=== PATIENT | male | born 1970 | race Caucasian/White ===

== ENCOUNTER 2016-06-07 17:52 | Observation (INO) ==
[2016-06-07] MEDS ORDERED: 0.9 % Sodium Chloride 1,000 ML IVC ONE ×2 (18:04→20:44)
[2016-06-07] MEDS ORDERED: Ondansetron 4 MG/2 ML VIAL IVP ONE (18:13)
[2016-06-07] MEDS ORDERED: Ipratropium/Albuterol Neb 3 ML IH ONE (18:13)
--- NOTE | 2016-06-07 18:17 | Emergency Department Note ---
Disposition Clinical Impression: Orthostatic hypotension Disposition: Admitted As Inpatient Condition: Good Referrals: Sandra Yen MD [Primary Care Provider] - Forms: Work/School Release, ED Satisfaction Letter Time of Disposition: 22:48 (lucrecia obsv) Syncope HPI - General Chief Complaint: ED General Medical Stated Complaint: vomiting, body aches, ear pain, headache Time Seen by Provider: 06/07/16 18:03 Source: patient, family Mode of arrival: ambulatory Limitations: no limitations Nursing Notes Reviewed: Yes Vital Signs Reviewed: Yes - History of Present Illness HPI Narrative: 46 year old with nausea and vomiting for 5 days syncope tuesday sent from primary doctor "orthostatic" headache, cough, congestion, chills, shaking dizzy with sitting up not intake fluids since tuesday diabetes, diet controlled no urine symptoms quit smoking years ago wheezing and sob cough, non productive denies chest pain Pt Subjective Complaint: loss of consciousness Onset (ago): day(s) Duration: second(s) Prodromal Symptoms: lightheaded, shortness of breath, nausea/vomiting Witnessed: yes - by bystander Context: getting out of bed - Related Data Home Medications Medication Instructions Recorded Confirmed Lisinopril [Zestril] 10 mg PO 06/07/16 Ropinirole [Requip] 1 mg PO 06/07/16 Tamsulosin [Flomax] 0.4 mg PO DAILY 06/07/16 06/07/16 Allergies Allergy/AdvReac Type Severity Reaction Status Date / Time atorvastatin AdvReac Chest Pain Verified 06/07/16 17:54 All systems ED: reviewed and negative except as stated. Constitutional: Reports: chills, weakness, weight change Cardiovascular: Reports: syncope Respiratory: Reports: cough Gastrointestinal: Reports: nausea, vomiting Genitourinary: Reports: as per HPI. Denies: urgency, dysuria Musculoskeletal: Reports: as per HPI Integumentary: Reports: as per HPI Neurological: Reports: as per HPI, weakness Psychiatric: Reports: as per HPI Endocrine: Reports: as per HPI Past Medical History - Past Medical History Attestation: Yes The following information was validated with the patient. Source: patient, old records reviewed Medical history: Reports: diabetes, hypertension, kidney stones, thyroid disease , other Psychiatric history: Reports: no psych history - Social History Smoking Status: Former smoker Smokeless Tobacco Status: No Alcohol use: Reports: recent Drug use: Reports: none Physical Exam - General Limitations: no limitations General appearance: alert, in no apparent distress - Eye Eye exam: Present: normal appearance, PERRL, EOMI - ENT ENT exam: normal exam - Neck Neck exam: Present: normal inspection, full ROM - Chest Chest inspection: Present: normal inspection - Respiratory Respiratory exam: Present: wheezes, prolonged expiratory phase - Cardiovascular Cardiovascular exam: Present: regular rate, normal rhythm - Abdominal Exam Abdominal exam: Present: soft, Non-Tender - Extremities Exam Extremities exam: Present: normal inspection, full ROM. Absent: tenderness, pedal edema - Neurological Exam Neurological exam: Present: alert, oriented X3 - Psychiatric Psychiatric exam: Present: depressed - Skin Skin exam: Present: warm, dry Course Course Narrative: patient seen and examined iv fluids - Reevaluation(s) Reevaluation #1: After additional liter of fluid the patient still orthostatic hypotensive with blood pressure of 80/50 systolic only comes up slightly 115/80 diastolic and upright position but his heart rate jumps significantly with the changes so as result will watch thru the night Vital Signs Temperature 100.3 F H 06/07/16 17:58 Pulse Rate 89 06/07/16 17:58 Respiratory Rate 18 06/07/16 17:58 Blood Pressure 116/87 06/07/16 17:58 O2 Sat by Pulse Oximetry 99 06/07/16 17:58 Temperature 100.3 F H 06/07/16 18:04 Pulse Rate 77 06/07/16 20:39 Respiratory Rate 18 06/07/16 18:36 Blood Pressure 98/67 06/07/16 20:39 O2 Sat by Pulse Oximetry 99 06/07/16 18:36 Oxygen Delivery Oxygen Delivery Room Air Syncope - Differential Diagnosis Likely: syncope due to orthostatic hypotension, vasovagal syncope, complete atrioventricular block, intracerebral hemorrhage, pulmonary embolism, dehydration/metabolic disorder, trauma secondary to event - Lab Data Result diagrams: 06/07/16 18:16 06/07/16 18:16 Lab Results 06/07/16 06/07/16 06/07/16 Range/Units 18:16 18:16 18:16 WBC 2.3 L (4.3-11.1) K/mcL RBC 4.59 (4.19-5.50) M/mcL Hgb 15.5 (12.9-16.9) g/dL Hct 44.4 (37.5-50.1) % MCV 96.7 (83.0-100.0) fL MCH 33.8 H (28.0-33.3) pg MCHC 34.9 (31.6-35.5) g/dL RDW 11.9 (11.5-14.5) % Plt Count 96 L (140-400) K/mcL MPV 9.7 (9.4-12.4) fL Immature Gran % 0.4 (0-4) % Seg Neutrophils % 53.1 % Lymphocytes % 34.2 % Monocytes % 11.5 % Eosinophils % 0.4 % Basophils % 0.4 % Neutrophils # 1.2 L (1.6-8.9) K/mcL Lymphocytes # 0.8 (0.6-4.6) K/mcL Monocytes # 0.3 (0.0-1.3) K/mcL Eosinophils # 0.0 (0.0-0.6) K/mcL Basophils # 0.0 (0.0-0.2) K/mcL Platelet Estimate Slight Decrease L (Normal) D-Dimer 1666 H (0-500) ng/mLFEU VBG Lactic Acid (0.5-2.2) mmol/L Sodium 135 L (136-145) mEq/L Potassium 4.0 (3.5-4.5) mEq/L Chloride 96 L (98-109) mEq/L Carbon Dioxide 26 (19-29) mEq/L BUN 13 (8-26) mg/dL Creatinine 1.21 (0.72-1.25) mg/dL Est GFR ( Amer) > 60 (> 60) Est GFR (Non-Af Amer) > 60 (> 60) BUN/Creatinine Ratio 11 (6-26) Glucose 93 (70-99) mg/dL Calculated Osmolality 280 (280-300) Calcium 8.8 (8.6-10.8) mg/dL Total Bilirubin 0.5 (0.2-1.2) mg/dL AST 21 (5-34) Units/L ALT 16 (0-55) Units/L Alkaline Phosphatase 64 (38-126) Units/L Troponin I (0-0.03) ng/mL Serum Total Protein 6.8 (6.0-8.3) g/dL Albumin 3.8 (3.5-5.0) g/dL Globulin 3.0 (2.4-3.5) g/dL Albumin/Globulin Ratio 1.3 (1.1-2.2) Urine Color (Yellow) Urine Clarity (Clear) Urine pH (5.0-8.0) pH Units Ur Specific Radiant (1.010-1.025) Urine Protein (Neg-Trace) mg/dL Urine Glucose (UA) (Normal) mg/dL Urine Ketones (Negative) mg/dL Urine Blood (Negative) Urine Nitrite (Negative) Urine Bilirubin (Negative) Urine Urobilinogen (Normal) mg/dL Ur Leukocyte Esterase (Negative) Ur Culture Indicated? (NO) 06/07/16 06/07/16 06/07/16 Range/Units 18:16 18:16 22:00 WBC (4.3-11.1) K/mcL RBC (4.19-5.50) M/mcL Hgb (12.9-16.9) g/dL Hct (37.5-50.1) % MCV (83.0-100.0) fL MCH (28.0-33.3) pg MCHC (31.6-35.5) g/dL RDW (11.5-14.5) % Plt Count (140-400) K/mcL MPV (9.4-12.4) fL Immature Gran % (0-4) % Seg Neutrophils % % Lymphocytes % % Monocytes % % Eosinophils % % Basophils % % Neutrophils # (1.6-8.9) K/mcL Lymphocytes # (0.6-4.6) K/mcL Monocytes # (0.0-1.3) K/mcL Eosinophils # (0.0-0.6) K/mcL Basophils # (0.0-0.2) K/mcL Platelet Estimate (Normal) D-Dimer (0-500) ng/mLFEU VBG Lactic Acid 0.9 (0.5-2.2) mmol/L Sodium (136-145) mEq/L Potassium (3.5-4.5) mEq/L Chloride (98-109) mEq/L Carbon Dioxide (19-29) mEq/L BUN (8-26) mg/dL Creatinine (0.72-1.25) mg/dL Est GFR ( Amer) (> 60) Est GFR (Non-Af Amer) (> 60) BUN/Creatinine Ratio (6-26) Glucose (70-99) mg/dL Calculated Osmolality (280-300) Calcium (8.6-10.8) mg/dL Total Bilirubin (0.2-1.2) mg/dL AST (5-34) Units/L ALT (0-55) Units/L Alkaline Phosphatase (38-126) Units/L Troponin I 0.02 (0-0.03) ng/mL Serum Total Protein (6.0-8.3) g/dL Albumin (3.5-5.0) g/dL Globulin (2.4-3.5) g/dL Albumin/Globulin Ratio (1.1-2.2) Urine Color Yellow (Yellow) Urine Clarity Clear (Clear) Urine pH 5.0 (5.0-8.0) pH Units Ur Specific Radiant <= 1.005 L (1.010-1.025) Urine Protein Negative (Neg-Trace) mg/dL Urine Glucose (UA) Normal (Normal) mg/dL Urine Ketones 40 H (Negative) mg/dL Urine Blood Negative (Negative) Urine Nitrite Negative (Negative) Urine Bilirubin Negative (Negative) Urine Urobilinogen Normal (Normal) mg/dL Ur Leukocyte Esterase Negative (Negative) Ur Culture Indicated? NO (NO)
[2016-06-07 18:30] LABS: Basophils % 0.4 %; Eosinophils % 0.4 %; Hematocrit 44.4 % (37.5-50.1); Hemoglobin 15.5 g/dL (12.9-16.9); Immature Granulocytes % 0.4 % (0-4); Lymphocytes # 0.8 K/mcL (0.6-4.6); Lymphocytes % 34.2 %; Mean Corpuscular HGB Conc 34.9 g/dL (31.6-35.5); Mean Corpuscular Hemoglobin 33.8 pg (28.0-33.3); Mean Corpuscular Volume 96.7 fL (83.0-100.0); Mean Platelet Volume 9.7 fL (9.4-12.4); Monocytes # 0.3 K/mcL (0.0-1.3); Monocytes % 11.5 %; Neutrophils # 1.2 K/mcL (1.6-8.9); Red Blood Count 4.59 M/mcL (4.19-5.50); Red Cell Distribution Width 11.9 % (11.5-14.5); Segmented Neutrophils % 53.1 %
[2016-06-07 18:32] LABS: Platelet Count 96 K/mcL (140-400)
[2016-06-07 18:42] LABS: Alanine Aminotransferase 16 Units/L (0-55); Albumin 3.8 g/dL (3.5-5.0); Albumin/Globulin Ratio 1.3 (1.1-2.2); Alkaline Phosphatase 64 Units/L (38-126); Aspartate Amino Transferase 21 Units/L (5-34); BUN/Creatinine Ratio 11 (6-26); Bilirubin,Total 0.5 mg/dL (0.2-1.2); Blood Urea Nitrogen 13 mg/dL (8-26); Calcium 8.8 mg/dL (8.6-10.8); Carbon Dioxide 26 mEq/L (19-29); Chloride 96 mEq/L (98-109); Glucose 93 mg/dL (70-99); Osmolality,Calculated 280 (280-300); Sodium 135 mEq/L (136-145); Total Protein 6.8 g/dL (6.0-8.3); eGFR For African Americans > 60 (> 60); eGFR For Non-African Americans > 60 (> 60)
[2016-06-07 18:56] LABS: Platelet Estimate Slight Decrease (Normal)
[2016-06-07 22:03] LABS: Bilirubin,Urine Negative (Negative); Blood,Urine Negative (Negative); Clarity,Urine Clear (Clear); Color,Urine Yellow (Yellow); Glucose,Urine (UA) Normal (Normal); Ketones,Urine 40 mg/dL (Negative); Leukocyte Esterase,Urine Negative (Negative); Nitrite,Urine Negative (Negative); Protein,Urine Negative (Neg-Trace); Specific Gravity,Urine <= 1.005 (1.010-1.025); Urobilinogen,Urine Normal (Normal)
[2016-06-07] MEDS ORDERED: Naloxone 0.4 MG/ML INJ IVP PRN (23:48)
[2016-06-08] MEDS ORDERED: Acetaminophen 325 MG TABLET PO PRN (00:25)
[2016-06-08] MEDS: 0.9 % Sodium Chloride 1,000 ML IVC SCH ×2 (00:43→07:26)
[2016-06-08 06:57] LABS: Hematocrit 41.7 % (37.5-50.1); Hemoglobin 14.2 g/dL (12.9-16.9); Lymphocytes # 0.6 K/mcL (0.6-4.6); Lymphocytes % 47.3 %; Mean Corpuscular HGB Conc 34.1 g/dL (31.6-35.5); Mean Corpuscular Hemoglobin 33.9 pg (28.0-33.3); Mean Corpuscular Volume 99.5 fL (83.0-100.0); Mean Platelet Volume 10.1 fL (9.4-12.4); Monocytes # 0.1 K/mcL (0.0-1.3); Monocytes % 6.1 %; Neutrophils # 0.6 K/mcL (1.6-8.9); Red Blood Count 4.19 M/mcL (4.19-5.50); Red Cell Distribution Width 12.1 % (11.5-14.5); Segmented Neutrophils % 46.6 %
[2016-06-08 07:03] LABS: INR 1.1
[2016-06-08 07:06] LABS: Activated Partial Thrombo Time 35.1 Seconds (26.0-36.0)
[2016-06-08 07:25] LABS: Platelet Count 86 K/mcL (140-400)
[2016-06-08 07:42] LABS: BUN/Creatinine Ratio 14 (6-26); Blood Urea Nitrogen 13 mg/dL (8-26); Calcium 8.3 mg/dL (8.6-10.8); Carbon Dioxide 23 mEq/L (19-29); Chloride 106 mEq/L (98-109); Glucose 141 mg/dL (70-99); Magnesium 2.2 mg/dL (1.6-2.6); Osmolality,Calculated 294 (280-300); Phosphorous 4.4 mg/dL (2.3-4.7); Potassium 5.1 mEq/L (3.5-4.5); Sodium 141 mEq/L (136-145); eGFR For African Americans > 60 (> 60); eGFR For Non-African Americans > 60 (> 60)
[2016-06-08 08:54] LABS: Platelet Estimate Decreased (Normal)
--- NOTE | 2016-06-08 11:02 | Internal Med History&Physical ---
Date of Encounter: 06/08/16 Time of Encounter: 10:25 Assessment and Plan (1) Vomiting Current visit: Yes Status: Acute Suspect due to viral gastroenteritis. He states symptoms have improved and he has had no vomiting for approximately 24 hours now. Qualifiers: Vomiting type: unspecified Vomiting Intractability: non-intractable Nausea presence: with nausea Qualified Code(s): R11.2 - Nausea with vomiting, unspecified (2) Leukopenia Current visit: Yes Status: Acute New since August 2015 labs. Suspect secondary to viral infection.. Qualifiers: Leukopenia type: unspecified Qualified Code(s): D72.819 - Decreased white blood cell count, unspecified (3) Thrombocytopenia Current visit: Yes Status: Acute New since August 2015 labs. Suspect secondary to viral infection. Internal Medicine - H&P: HPI Chief complaint: Vomiting and weakness Admitted From: Home Plans for Post Hospital Care: Home History of present illness: Mr. Blanc is a 46 year old male who was sent to the emergency room from Dr. Yen's office after he presented with 3 day history of vomiting and weakness. He reports having chills and a headache onset June 04. He had a syncopal episode with vomiting at a friend's house the following day. He reports his syncope occurred while he was sitting and he states he had a sudden feeling of warmth and nausea and lost consciousness for approximately 10 seconds. He did not fall out of the chair because friends caught him. His symptoms did not improve over the next 48 hours so went to see his PCP Dr. Yen. He was directed to emergency room. Evaluation in emergency room showed leukopenia and thrombocytopenia. He was admitted to [facility] floor for ongoing care needs. He states he feels improved at the present time and back to his baseline and wishes to be discharged home. He denies significant diarrhea. He denies pain dyspnea or cough. States he has tolerated his breakfast today without difficulty. He denies similar symptoms in his family or friends. Past Med Surg Social Fam HX - Past Medical History Medical history: diabetes, hypertension, kidney stones, thyroid disease, other Psychiatric history: no psych history - Social History Smoking Status: Former smoker Smokeless Tobacco Status: No Alcohol use: recent Drug use: none - Family History Mother Living Status: Still Living Hx Family Cancer: Yes Father Living Status: Age at : 53 Cause of : Bone cancer Hx Family Cancer: Yes Internal Medicine - H&P: Meds Lisinopril [Zestril] 2.5 mg PO DAILY 06/07/16 [History] Ropinirole [Requip] 5 mg PO DAILY 06/07/16 [History] Tamsulosin [Flomax] 0.4 mg PO DAILY 06/07/16 [History] Allergies atorvastatin Adverse Reaction (Verified 06/07/16 17:54) Chest Pain All Systems PM: A 10-system review of systems was performed and is negative for pertinent findings except as documented above in the HPI. Review of systems: Gen.: He states his weight has decreased approximately 10 pounds the past few days because of poor intake Cardiovascular: He has a history of hypertension but denies ME heart failure angina DVT or pulmonary embolus Respiratory: He smoked from age [age] a total of 20 years. He smoked up to 5 packs per day. He denies a diagnosis of COPD GI: He denies disorders of his liver gallbladder or exocrine pancreas : He reports a kidney stone passed 10-15 years ago. He has BPH and uses Flomax but denies other kidney bladder prostate disorders Neurologic: He denies large distribution strokes or seizures Endocrine: He denies thyroid disease or hyperlipidemia. He states he has diet- controlled diabetes. Hemoglobin A1c was 5.0% on 03/08/2016. Hematology/oncology: He was found to have leukopenia and thrombocytopenia on emergency room labs. He had normal values of WBC and platelet count on blood work 09/05/2015. He denies other blood disorders or internal malignancies Psychiatric: He denies anxiety depression or other mental health issues Musk skeletal: He has had multiple back surgeries with fusion. He has degenerative disc disease. He had left shoulder surgery in the past and reports having multiple bone spurs. - Constitutional Vitals: Temp Pulse Resp BP Pulse Ox 98.0 F 68 18 124/82 96 06/08/16 06:31 06/08/16 06:31 06/08/16 06:31 06/08/16 06:31 06/08/16 06:31 Exam: Gen.: He is a well-developed well-nourished male who appears in no severe distress at present time HEENT: Head is atraumatic normocephalic. Eyes: EOMI. There is no scleral icterus. Mouth: Mucosa is moist. Neck: Supple and nontender. There is no thyromegaly or adenopathy noted. Heart: Regular without murmurs gallops or ectopics. Lungs: No wheezes or crackles are heard. Abdomen: Bowel sounds are diminished. The abdomen is nontender to palpation. No masses or guarding are noted. Extremities: There is no cyanosis edema or clubbing noted. He has some petechiae on his lower legs bilaterally with abrupt termination at sock/hutson lines. He has minimal DJD changes of his hands. Neurologic: Mental status: He is talkative and a good historian. Cranial nerves : Smile is symmetric. Forehead wrinkles bilaterally. Tongue protrudes midline. EOMI. Motor: There is no pronator drift. Cerebellar: Finger to nose is intact bilaterally. Skin: Warm and dry Internal Med - H&P Results - Labs CBC & Chem 7: 06/08/16 05:20 06/08/16 06:00 Labs: Short CBC 06/08/16 Range/Units 05:20 WBC 1.3 L (4.3-11.1) K/mcL Hgb 14.2 (12.9-16.9) g/dL Hct 41.7 (37.5-50.1) % Plt Count 86 L (140-400) K/mcL Neutrophils # 0.6 L (1.6-8.9) K/mcL BMP 06/08/16 06:00 Sodium 141 Potassium 5.1 H D Chloride 106 Carbon Dioxide 23 BUN 13 Creatinine 0.94 Glucose 141 H Calcium 8.3 L
[2016-06-08 11:12] VITALS: BP 130/86
--- NOTE | 2016-06-08 11:17 | Discharge Summary ---
Date of Encounter: 06/08/16 Time of Encounter: 10:25 - Discharge Diagnosis (1) Vomiting Priority: Primary Status: Acute Qualifiers: Vomiting type: unspecified Vomiting Intractability: non-intractable Nausea presence: with nausea Qualified Code(s): R11.2 - Nausea with vomiting, unspecified (2) Leukopenia Priority: Secondary Status: Acute Qualifiers: Leukopenia type: unspecified Qualified Code(s): D72.819 - Decreased white blood cell count, unspecified (3) Thrombocytopenia Priority: Secondary Status: Acute - Discharge Medications Home Medications: Lisinopril [Zestril] 2.5 mg PO DAILY 06/07/16 [History] Ropinirole [Requip] 5 mg PO DAILY 06/07/16 [History] Tamsulosin [Flomax] 0.4 mg PO DAILY 06/07/16 [History] Allergies/Adverse Reactions: Allergies atorvastatin Adverse Reaction (Verified 06/07/16 17:54) Chest Pain Date of admission: 06/07/16 22:57 Primary care physician: Sandra Yen Consults: 06/08/16 00:58 Consult to Nutrition [CONS] Routine Comment: Consulting Provider: NUTRITION Reason for Dietary Consult: MST Score - Patient Status Disposition: Home, Self-Care Condition: Good Functional capacity at discharge: independent ambulation Overall status at discharge: patient is progressing back to baseline - Discharge Instructions Follow Up With: Sandra Yen MD [Primary Care Provider] - 1 week - Diet and Activity Activity: resume usual activities as tolerated Diet: advance to your usual diet Hospital course: Mr. Blanc is a 46 year old male who was sent to the emergency room from Dr. Yen's office after he presented with 3 day history of vomiting and weakness. He reports having chills and a headache onset June 04. He had a syncopal episode with vomiting at a friend's house the following day. He reports his syncope occurred while he was sitting and he states he had a sudden feeling of warmth and nausea and lost consciousness for approximately 10 seconds. He did not fall out of the chair because friends caught him. His symptoms did not improve over the next 48 hours so went to see his PCP Dr. Yen. He was directed to emergency room. Evaluation in emergency room showed leukopenia and thrombocytopenia. He was admitted to [facility] for ongoing care needs. Initial orders were written by the emergency room physician. I saw him June 08 and performed a history and physical and discharge. D-dimer returned elevated in emergency room at 1666. A chest CTA showed no evidence of pulmonary embolism or other significant pathology. Follow-up lab work on June 08 showed platelet count slightly decreased further at 86 K and WBC 1.3 K. I felt this was likely due to a viral infection. He reported no vomiting the last 24 hours and been able to tolerate breakfast the morning of June 08 without nausea or vomiting. He had no further syncopal or near syncopal episodes and felt back to his baseline when I saw him. He wished to be discharged home. He will follow with his PCP Dr. Yen within [address] Yen can order follow-up labs to monitor leukopenia and thrombocytopenia recovery. - Time Spent with Patient Total time spent providing and/or coordinating discharge services: - Constitutional Vitals: Temp Pulse Resp BP Pulse Ox 98.0 F 68 18 124/82 96 06/08/16 06:31 06/08/16 06:31 06/08/16 06:31 06/08/16 06:31 06/08/16 06:31
--- NOTE | 2016-06-08 17:13 | Electrocardiograph Report ---
[address] [address] Test Date: 2016-06-07 Pat Name: John Blanc Department: [id number] Room: [facility] Gender: M Compo Conveyor Operator: Victorina : 1970 Requested By: Gonzalez Jimenez Order Number: [id number] Reading MD: Jagdeep Tanner Measurements Intervals [place] Rate: 96 P: -18 [place]: 154 QRS: 104 QRSD: 87 T: 57 QT: 330 QTc: 384 Interpretive Statements SINUS RHYTHM MARKED RIGHT AXIS DEVIATION Electronically Signed On 06-08-2016 17:11:43 EDT by Jagdeep Tanner
== END 2016-06-08 12:27 | disposition home or self-care (01) ==
LOC: EMEROOPIK 17:52 → INPPIK 17:52
PROVIDERS: ADMIT Internal Medicine; ATTEND Internal Medicine